=== PATIENT | female | born 1980 | race Hispanic/Latino ===

== ENCOUNTER 2017-01-12 20:40 | Emergency (ER) | payer BC ==
[2017-01-12 20:55] VITALS: BP 125/74; PULSE 83; RESP 18; TEMP 98.5; O2SAT 97
[2017-01-12] MEDS ORDERED: Albuterol-Ipratrop 3 mg / 0.5 (3 ml) UD INH STA (21:05)
--- NOTE | 2017-01-12 21:35 | ED PDOC ---
HPI: CCC, URI, Sore Throat Time Seen by Provider: 01/12/17 20:58 Chief Complaint (Nursing): Cough, Cold, Congestion Chief Complaint (Provider): Cough, Cold, Congestion History Per: Patient History/Exam Limitations: no limitations Have you had recent travel within the past 21 days to any of the following countries: [place], [place], [place] or [place]?: No Onset/Duration Of Symptoms: Days (2x weeks) Current Symptoms Are (Timing): Still Present Associated Symptoms: Fever (intermittent), Cough (dry) Severity: Moderate Additional Complaint(s): 36 year old female with a pertinent medical history of asthma and sinusitis presents to the ED with complaints of an intermittent dry cough ( which is worse in the morning and night) accompanied by a fever (which has resolved 4x days ago) for the past 2x weeks. She reports using her inhaler on occasion and starting a course of Ceftin today. She denies having nausea, vomiting, diarrhea, and chest pain. PMD: Debbie Bright CNP Past Medical History Reviewed: Historical Data, Nursing Documentation, Vital Signs Vital Signs: Last Vital Signs Temp 98.5 F 01/12/17 20:52 Pulse 83 01/12/17 20:52 Resp 18 01/12/17 20:52 BP 125/74 01/12/17 20:52 Pulse Ox 97 01/12/17 20:52 - Medical History PMH: Asthma Other PMH: sinusitis - Surgical History Surgical History: (1x) - Family History Family History: States: Other - Living Arrangements Living Arrangements: With Family - Social History Current smoker - smoking cessation education provided: No Alcohol: None Drugs: Denies - Home Medications Home Medications: Ambulatory Orders Medication Instructions Recorded Albuterol 0.5% [Albuterol 0.5% 2.5 mg IH Q6 PRN #1 packet 01/12/17 Inhal Camila (2.5 mg/0.5 ml) UD] Epinephrine HCl [Epipen 0.3 mg MR PRN PRN #0.3 ml 01/12/17 Auto-Injector] Nebulizer [Compact Compressor 1 dev XX PRN PRN #1 dev 01/12/17 Nebulizer] - Allergies Allergies/Adverse Reactions: Allergies Allergy/AdvReac Type Severity Reaction Status Date / Time amoxicillin [From Augmentin] Allergy RASH Verified 01/12/17 20:50 azithromycin [From Zithromax] Allergy RASH Verified 01/12/17 20:50 citalopram [From Celexa] Allergy RASH Verified 01/12/17 20:51 clavulanic acid Allergy RASH Verified 01/12/17 20:50 [From Augmentin] levofloxacin [From Levaquin] Allergy RASH Verified 01/12/17 20:51 shellfish derived Allergy RASH Verified 01/12/17 20:52 Sulfa (Sulfonamide Allergy RASH Verified 01/12/17 20:50 Antibiotics) Review of Systems ROS Statement: Except As Marked, All Systems Reviewed And Found Negative Constitutional: Positive for: Fever (intermittent for the past 2x weeks, resolved 4x days ago) ENT: Positive for: Nose Congestion Cardiovascular: Negative for: Chest Pain Respiratory: Positive for: Cough (dry) Gastrointestinal: Negative for: Nausea, Vomiting, Diarrhea Physical Exam - Reviewed Nursing Documentation Reviewed: Yes Vital Signs Reviewed: Yes - Physical Exam Appears: Positive for: Well, Non-toxic, No Acute Distress Head Exam: Positive for: ATRAUMATIC, NORMOCEPHALIC Skin: Positive for: Normal Color, Warm, Dry Eye Exam: Positive for: Normal appearance ENT: Positive for: Sinus Pain/Drainage (frontal sinus tenderness bilaterally) Cardiovascular/Chest: Positive for: Regular Rate, Rhythm Respiratory: Positive for: Wheezing (trace expiratory wheeze bilaterally). Negative for: Respiratory Distress Neurologic/Psych: Positive for: Alert, Oriented (3x) - ECG O2 Sat by Pulse Oximetry: 97 (RA) Pulse Ox Interpretation: Normal Nebulizer Treatments/Peak Flow - Duonebs Number of Bronchodilator Doses given?: 1 - Pre/Post Peak Flow Pre Treatment Peak Flow: 1 Post treatment Peak Flow: 1 - Clinical Response Clinical Response: Improved Medical Decision Making Medical Decision Makin:58 Initial impression: 36 year old female with cough and congestion insetting of asthma. Initial plan: * duoneb 3ml INH * peak flow pre post treatment * reevaluation 21:00 Upon reevaluation, patient was offered steroid which she declined. Patient commits to taking full course of Ceftin and feels stale for discharge. Return if symptoms persist or worsen. Patient is diagnosed with bronchitis and sinusitis. Scribe Attestation: Documented by Sonja Lopez, acting as a scribe for [place] MD. Provider Scribe Attestation: All medical record entries made by the Scribe were at my direction and personally dictated by me. I have reviewed the chart and agree that the record accurately reflects my personal performance of the history, physical exam, medical decision making, and the department course for this patient. I have also personally directed, reviewed, and agree with the discharge instructions and disposition. Disposition - Clinical Impression Clinical Impression: Bronchitis, Sinusitis - Disposition Disposition Time: 21:00 Condition: STABLE Prescriptions: Albuterol 0.5% [Albuterol 0.5% Inhal Camila (2.5 mg/0.5 ml) UD] 2.5 mg IH Q6 PRN # 1 packet PRN Reason: Shortness Of Breath Epinephrine HCl [Epipen Auto-Injector] 0.3 mg MR PRN PRN #0.3 ml PRN Reason: Anaphylaxis Nebulizer [Compact Compressor Nebulizer] 1 dev XX PRN PRN #1 dev PRN Reason: Shortness Of Breath Instructions: Sinusitis (ED), Acute Bronchitis (ED)
== END 2017-01-12 21:48 | disposition home or self-care (01) ==
LOC: H.ER 20:40
DX: J40 Bronchitis, not specified as acute or chronic (principal); J01.90 Acute sinusitis, unspecified

== ENCOUNTER 2018-11-14 19:55 | Emergency (ER) | payer BC ==
[2018-11-14] MEDS ORDERED: Albuterol 0.083% Inhal Sol (2.5 mg/3 mL) UD INH STA (20:17)
[2018-11-14] MEDS ORDERED: DiphenhydrAMINE 50 mg/ml Inj IVP STA (20:17)
[2018-11-14] MEDS ORDERED: Sodium Chloride 0.9% 1,000 ML IV STA (20:17)
[2018-11-14] MEDS ORDERED: Albuterol 0.083% Inhal Sol (2.5 mg/3 mL) UD ONE (20:24)
[2018-11-14] MEDS ORDERED: DiphenhydrAMINE 50 mg/ml Inj ONE (20:25)
--- NOTE | 2018-11-14 20:51 | ED PDOC ---
HPI: Allergic Reaction Time Seen by Provider: 11/14/18 20:09 Chief Complaint (Nursing): Allergic Reaction Chief Complaint (Provider): Allergic Reaction History Per: Patient History/Exam Limitations: no limitations Onset/Duration Of Symptoms: Hrs (x1) Current Symptoms Are (Timing): Still Present Additional Complaint(s): Patient is a 38 y/o female with a PMHx of asthma who presents to the ED for evaluation of an allergic reaction one hour prior to arrival. Patient states she accidentally ate pizza with sunflower seeds which she is allergic to. Patient complains of shortness of breath, coughing, and runny nose. Patient claims while waiting in the ED she also developed a pruritic rash all over her body. PCP: Dr. Raeann Shelton Past Medical History Reviewed: Historical Data, Nursing Documentation, Vital Signs Vital Signs: Last Vital Signs Temp 100.2 F H 11/14/18 20:10 Pulse 87 11/14/18 20:10 Resp 26 H 11/14/18 20:10 BP Pulse Ox 96 11/14/18 20:10 - Medical History PMH: Asthma - Surgical History Surgical History: (1x) - Family History Family History: States: No Known Family Hx - Home Medications Home Medications: Ambulatory Orders Medication Instructions Recorded Albuterol 0.5% [Albuterol 0.5% 2.5 mg IH Q6 PRN #1 packet 01/12/17 Inhal Camila (2.5 mg/0.5 ml) UD] Epinephrine HCl [Epipen 0.3 mg MR PRN PRN #0.3 ml 01/12/17 Auto-Injector] Nebulizer [Compact Compressor 1 dev XX PRN PRN #1 dev 01/12/17 Nebulizer] DiphenhydrAMINE [Benadryl] 50 mg PO Q6 PRN #12 cap 11/14/18 - Allergies Allergies/Adverse Reactions: Allergies Allergy/AdvReac Type Severity Reaction Status Date / Time amoxicillin [From Augmentin] Allergy RASH Verified 01/12/17 20:50 azithromycin [From Zithromax] Allergy RASH Verified 01/12/17 20:50 citalopram [From Celexa] Allergy RASH Verified 01/12/17 20:51 clavulanic acid Allergy RASH Verified 01/12/17 20:50 [From Augmentin] levofloxacin [From Levaquin] Allergy RASH Verified 01/12/17 20:51 shellfish derived Allergy RASH Verified 01/12/17 20:52 Sulfa (Sulfonamide Allergy RASH Verified 01/12/17 20:50 Antibiotics) Review of Systems ROS Statement: Except As Marked, All Systems Reviewed And Found Negative ENT: Positive for: Nose Discharge Respiratory: Positive for: Cough, Shortness of Breath Skin: Positive for: Rash (pruritic; throughout body) Physical Exam - Reviewed Nursing Documentation Reviewed: Yes Vital Signs Reviewed: Yes - Physical Exam Appears: Positive for: No Acute Distress (speaking full sentences) Head Exam: Positive for: ATRAUMATIC, NORMAL INSPECTION, NORMOCEPHALIC Skin: Positive for: Normal Color (faint erythema throughout body), Warm Eye Exam: Positive for: EOMI, Normal appearance, PERRL ENT: Positive for: Normal ENT Inspection, Other (actively coughing) Neck: Positive for: Normal, Painless ROM, Supple Cardiovascular/Chest: Positive for: Regular Rate, Rhythm. Negative for: Murmur Respiratory: Positive for: Normal Breath Sounds. Negative for: Respiratory Distress Gastrointestinal/Abdominal: Positive for: Normal Exam, Soft. Negative for: Tenderness Back: Positive for: Normal Inspection. Negative for: L CVA Tenderness, R CVA Tenderness, Vertebral Tenderness Extremity: Positive for: Normal ROM. Negative for: Pedal Edema, Deformity Neurological/Psych: Positive for: Alert, Oriented (x3) - Laboratory Results Result Diagrams: 11/14/18 20:52 11/14/18 20:52 - ECG O2 Sat by Pulse Oximetry: 96 (RA) Pulse Ox Interpretation: Normal - Progress Condition: Re-examined, Improved (Reports complete relief of SOB, rash, and itching. States she is feeling much better. Informed that steroids are necessary for treatment but pt. still refused as it makes her feel "psychotic." Advised to avoid sunflower seeds and is to return to ED if symptoms return. Verbalized correct understanding of plan and care. ) Disposition - Clinical Impression Clinical Impression: Allergic reaction - Patient ED Disposition Is Patient to be Admitted: No - Disposition Referrals: Giovany Nichole [Outside] Disposition: Routine/Home Disposition Time: 22:06 Condition: IMPROVED Additional Instructions: FOLLOW UP WITH YOUR DOCTOR FOR FURTHER EVALUATION RETURN TO ED IMMEDIATELY IF SYMPTOMS WORSEN BRENDA LANDIN, thank you for letting us take care of you today. Your provider was Stephanie Wynn MD and you were treated for POSS ALLERGIC REACTION. The emergency medical care you received today was directed at your acute symptoms. If you were prescribed any medication, please fill it and take as directed. It may take several days for your symptoms to resolve. Return to the Emergency Department if your symptoms worsen, do not improve, or if you have any other problems. Please contact your doctor or call one of the physicians/clinics you have been referred to that are listed on the Patient Visit Information form that is included in your discharge packet. Bring any paperwork you were given at [facility] with you along with any medications you are taking to your follow up visit. Our treatment cannot replace ongoing medical care by a primary care provider outside of the emergency department. Thank you for allowing the [facility] team to be part of your care today. If you had an X-Ray or CT scan: A Radiologist will review the ED reading if any change in treatment is needed we will contact you. If you had a blood, urine, or wound culture: It will take several days for the results, if any change in treatment is needed we will contact you. If you had an STI test: It will take 48 hours for the results. Please call after 1 week if you have not heard back. Prescriptions: DiphenhydrAMINE [Benadryl] 50 mg PO Q6 PRN #12 cap PRN Reason: itching or rash Instructions: Food Allergy Forms: [employer] (Yakut) Print Language: LIBYAN Medical Decision Making Medical Decision Making: Time: 2015 Impression: Allergic Reaction Plan: CMP HCG, Qualitative Serum CBC Albuterol 2.5 mg INH Benadryl 50 mg IVP IV Fluids Pepcid 20 mg IVP Janitor Cleaner IV Insertion Scribe Attestation: Documented by Bryan Marshall, acting as a scribe forJames Pormentilla PA-C. Provider Scribe Attestation: All medical record entries made by the Scribe were at my direction and personally dictated by me. I have reviewed the chart and agree that the record accurately reflects my personal performance of the history, physical exam, medical decision making, and the department course for this patient. I have also personally directed, reviewed, and agree with the discharge instructions and disposition.
[2018-11-14 21:00] LABS: BASO # 0.1 K/uL (0.0-0.2); BASO % 0.7 % (0.0-2.0); EOS % 0.4 % (0.0-4.0); HEMOGLOBIN 15.3 g/dL (12.0-16.0); LYMPH # 3.4 K/uL (1.0-4.3); LYMPH % 32.2 % (20.0-40.0); MEAN CELL VOLUME 85.5 fl (81.0-99.0); MEAN CORPUSCULAR HEMOGLOBIN 28.9 pg (27.0-31.0); MEAN CORPUSCULAR HGB CONC 33.7 g/dL (33.0-37.0); MEAN PLATELET VOLUME 9.7 fl (7.2-11.7); MONO # 0.8 K/uL (0.0-0.8); MONO % 7.2 % (0.0-10.0); NEUT # 6.3 K/uL (1.8-7.0); NEUT % 59.5 % (50.0-75.0); NRBC % 0.1 % (0.0-0.0); RBC 5.31 Mil/uL (3.80-5.20); RED CELL DISTRIBUTION WIDTH 13.3 % (11.5-14.5); WHITE BLOOD COUNT 10.6 K/uL (4.8-10.8)
[2018-11-14 21:07] LABS: ALB/GLOB RATIO 1.3 (1.0-2.1); ALBUMIN 4.9 g/dL (3.5-5.0); ALT/SGPT 42 U/L (9-52); AST/SGOT 36 U/L (14-36); BLOOD UREA NITROGEN 16 mg/dl (7-17); CALCIUM 10.2 mg/dL (8.4-10.2); GFR NON-AFRICAN AMERICAN > 60
[2018-11-14 22:16] VITALS: BP 123/60; PULSE 78; RESP 18; TEMP 97.9
[2018-11-14 23:36] VITALS: O2SAT 96
== END 2018-11-14 22:45 | disposition home or self-care (01) ==
LOC: H.ER 19:55
DX: T78.40XA Allergy, unspecified, initial encounter (principal); Z88.0 Allergy status to penicillin; Z88.1 Allergy status to other antibiotic agents
CPT/HCPCS: 80053; 84703; 85025; 96361; 96374; 96375; 99284; J1200; J7030